=== PATIENT | male | born 1965 | race Caucasian/White ===

== ENCOUNTER → 2019-04-19 | Outpatient (CLI) | payer OTHER ==
--- NOTE | 2019-04-19 11:14 | PCVCIMAG ---
APPROVED REPORT Study performed: 04/19/2019 09:19:46 EXAM: Comprehensive 2D, Doppler, and color-flow Echocardiogram Patient Location: Echo lab Room #: 2Status: routine BSA: 2.21 HR: 63 bpmBP: 150/86 mmHg Rhythm: NSR Other Information Study Quality: Adequate Risk Factors: Cardiac Risk Factors: HTN Indications Dyspnea Chest Pain 2D Dimensions IVSd: 11.58 (7-11mm)LVOT Diam: 20.57 (18-24mm) LVDd: 55.86 mm PWd: 10.05 (7-11mm)Ascending Ao: 32.34 (22-36mm) LVDs: 40.93 (25-40mm) Left Atrium: 33.86 (27-40mm) Aortic Root: 22.14 mm LV Single Plane 4CH: 55.83 % LV Single Plane 2CH: 65.29 % Biplane EF: 61.3 % Volumes Left Atrial Volume (Systole) Single Plane 4CH: 55.65 mLSingle Plane 2CH: 40.79 mL Biplane LA Volume: 48.00 mLLA ESV Index: 22.00 mL/m2 Aortic Valve AoV Peak Julio.: 1.64 m/s AO Peak Gr.: 10.73 mmHgLVOT Max P.14 mmHg LVOT Max V: 1.13 m/s SOPHIA Vmax: 2.30 cm2 Mitral Valve E/A Ratio: 1.1 MV Decel. Time: 248.82 ms MV E Max Julio.: 0.79 m/s MV A Julio.: 0.75 m/s IVRT: 93.43 ms TDI E/Lateral E': 11.29E/Medial E': 7.90 Medial E' Julio.: 0.10 m/s Lateral E' Julio.: 0.07 m/s Pulmonary Valve PV Peak Julio.: 1.27 m/sPV Peak Gr.: 6.42 mmHg Pulmonary Vein P Vein S: 0.61 m/sP Vein A: 0.30 m/s P Vein D: 0.48 m/sP Vein A Dur.: 103.8 msec P Vein S/D Ratio: 1.27 Tricuspid Valve TR Peak Julio.: 1.35 m/s TR Peak Gr.: 7.32 mmHg TV Vmax: 0.71 m/sPA Pressure: 14.00 mmHg Left Ventricle The left ventricle is normal size. There is normal LV segmental wall motion. Borderline concentric left ventricular hypertrophy. Left ventricular systolic function is normal. The left ventricular ejection fraction is within the normal range. LVEF is 60-65%. Grade I - abnormal relaxation pattern. Right Ventricle The right ventricle is normal size. The right ventricular systolic function is normal. Atria The left atrium size is normal. The right atrium size is normal. Aortic Valve The aortic valve is normal in structure. No aortic regurgitation is present. There is no aortic valvular stenosis. Mitral Valve The mitral valve is normal in structure. There is no mitral valve regurgitation noted. No evidence of mitral valve stenosis. Tricuspid Valve The tricuspid valve is normal in structure. Trace tricuspid regurgitation with a PA pressure of 14 mmHg. Pulmonic Valve The pulmonary valve is normal in structure. There is no pulmonic valvular regurgitation. Great Vessels The aortic root is normal in size. The ascending aorta is normal in size. Aortic arch is not well visualized. IVC is normal in size and collapses >50% with inspiration. Pericardium There is no pericardial effusion. There is no pleural effusion. <Conclusion> The left ventricle is normal size. Left ventricular systolic function is normal. The right ventricle is normal size. The left atrium size is normal. The aortic valve is normal in structure. The mitral valve is normal in structure. Trace tricuspid regurgitation with a PA pressure of 14 mmHg.
--- NOTE | 2019-04-19 11:21 | PCVCIMAG ---
APPROVED REPORT Study performed: 04/19/2019 09:58:15 Exam: Stress Echocardiogram Indication: Dyspnea , Hypertension, Chest pain Ht: 5 ft 10 in HR: 64 bpm BP: 150/86 mmHg Rhythm: NSR Medical History Medical History: HTN Medications: Losartan Cardiac Risk Factors: Tobacco History (Current/Recent), Hyperlipidemia Previous Cardiac Procedures: none Pretest Chest Pain Characteristics: No chest pain Exercise History: Indeterminate Procedure The patient underwent an Exercise Stress Test using the Jevon Protocol. Blood pressure, heart rate, and EKG were monitored. An Echocardiogram was performed by industrial electrical technician in four stages in quad fashion. At peak stress, four selected images were obtained and placed side by side with resting images for comparison. Stress Test Details Stress Test: Exercise stress testing was performed using a Jevon protocol. HR Resting HR: 63 bpmMax Heart Rate (APMHR): 165 bpm Max HR Achieved: 146 bpmTarget HR (85% APMHR): 140 bpm % of APMHR: 88 Recovery HR: 88 bpm HR response to stress: Normal HR response to stress BP Resting BP: 150/86 mmHg Max BP: 240/100 mmHg Recovery BP: 194/104 mmHg BP response to stress: Abnormal hypertensive response to stress. ECG Resting ECG: Sinus Rhythm, nonspecific ST-T abnormalities Stress ECG: Sinus Rhythm, nonspecific ST-T abnormalities ST Change: Eqivocal Arrhythmia: occ PVCs Recovery ECG: Sinus Rhythm, nonspecific ST-T abnormalities Recovery ST Change: Eqivocally ischemic Recovery ST Deviation: -1.55 mm Recovery Arrhythmia: rare PVCs Clinical Reason for Termination: Maximal effort Stress Symptoms: calf cramping,dyspnea Exercise duration: 7 min 30 sec Highest Stage Achieved: Stage 3: 3.4 mph at 14% grade. Exercise capacity: 10.1 METs Overall Exercise Capacity for Age: Poor Scale: Sedentary Angina Score: None No complications. Stress ECG Conclusion The patient exercised according to the JEVON protocol for 7:30 mins; achieving a work level of 10.1 METS. The resting heart rate of 63 bpm rola to a maximum heart rate of 146 bpm. This value represent 88% of the maximal, age-predicted heart rate. The resting blood pressure of 150/86 mmHg, rola to a maximum blood pressure of 240/100 mmHg. The exercise test was stopped due to fatigue,calf cramps. Pre-Stress Echo The resting Echocardiogram showed normal left ventricular contractility with an estimated Ejection Fraction of about 60%. The resting echocardiogram demonstrated normal wall motion in all wall segments. Normal wall motion in all segments on baseline images. Post-Stress Echo The stress Echocardiogram showed normal left ventricular contractility with an estimated Ejection Fraction of about 65-70%. Compared to rest, there were no stress-induced wall motion abnormalities. Normal augmentation of wall motion in all segments on post stress images. Clinical No clinical evidence for ischemia. Conclusion Clinical Response: Non-ischemic Exercise Capacity: Average Stress ECG Response: Equivocal Stress Echo Images: Non-ischemic The left ventricle is normal in size and wall thickness in both the rest and stress images. <Conclusion> The left ventricle is normal in size and wall thickness in both the rest and stress images.
== END | disposition home or self-care (01) ==
LOC: PCVCIMAG 08:52
PROVIDERS: ATTEND Internal Medicine Cardiovascular Disease
DX: R07.1 Chest pain on breathing (principal); R60.9 Edema, unspecified; E78.00 Pure hypercholesterolemia, unspecified; I11.9 Hypertensive heart disease without heart failure; F17.200 Nicotine dependence, unspecified, uncomplicated; Z79.899 Other long term (current) drug therapy
CPT/HCPCS: 93306; 93351